=== PATIENT | female | born 1970 | race Caucasian/White ===

== ENCOUNTER 2022-06-27 18:11 | Outpatient (REF) | payer BC, SELFPAY ==
[2022-06-27 18:57] LABS: Influenza A PCR NEGATIVE (Negative); Influenza B PCR NEGATIVE (Negative); Resp Syncy Virus RNA Qual PCR NEGATIVE (Negative); SARS COV2 PCR INHOUSE NEGATIVE (Negative)
== END 2022-06-27 18:12 | disposition home or self-care (01) ==
LOC: HO.LNP 18:11
PROVIDERS: Visit Provider Nurse Practitioner Family
DX: Z20.822 Contact with and (suspected) exposure to COVID-19 (principal); R09.89 Other specified symptoms and signs involving the circulatory and respiratory systems
CPT/HCPCS: 0241U

== ENCOUNTER 2024-04-09 13:54 | Outpatient (AMB) | payer BC, SELFPAY ==
[2024-04-09 14:36] VITALS: BP 114/70; PULSE 93; TEMP 36.6; O2SAT 96; BMI 23.3
--- NOTE | 2024-04-09 14:36 | AM.OFFWIN_ITS ---
Intake Vital Signs 04/09/24 14:36 Height 5 ft 2 in Weight 127 lb 6 oz BMI 23.3 BP 114/70 Blood Pressure Location Lt brachial Position Sitting Pulse 93 Pulse Source Pulse Oximeter Temp 97.8 F Temp Source Temporal Artery Scan Pulse Oximetry (%) 96 Oxygen Delivery Method Room Air Intake Visit Reasons: EP Sore throat, cough, congestion Intake Note: Pt presents to the office today for c/o cough,congestion, headache, x4 days after going to the [facility]. Patient Tobacco Use Status: Never used Tobacco Allergies No Known Allergies Allergy (Verified 04/09/24 14:37) HPI HPI Comments History of Present Illness Details History The patient is a 53-year-old female presenting with acute respiratory symptoms. She experienced the onset of diarrhea three days ago followed by a sore throat the subsequent day. By the third day, the patient reported a dry cough, a significant headache, and minimal nasal congestion. She describes a history of recurrent upper respiratory symptoms, including sinus infections, which have led to a decreased sense of smell. The patient has not experienced shortness of br eath but reports a history of arthritis and recent difficulties in managing weight due to menopause concurrently affecting her overall wellness. She also expressed interest in hormone replacement therapy, although she has recently started using an [id number] symptom relief product. The patient has been attempting symptomatic relief through the use of cough drops and tea, avoiding medications that might interfere with testing. She has a recent surgical history of hand surgery for arthritis. There has been no prior testing for COVID-19 or influenza related to this current illness. Physical Exam General: Cooperative, healthy appearing, comfortable and no acute distress Orientation/consciousness: Patient oriented x3 Limitations: No limitations Head: Normal to inspection Ears: Hearing grossly normal bilaterally, external ears normal and TM's normal bilaterally Nose: Normal external nose present, Normal nares present and No nasal discharge present Face and sinus: Normal facial exam and Yes sinuses nontender Mouth: Normal oral and palatal mucosa present and moist mucous membranes Throat: Yes tonsils normal, Yes uvula midline. Posterior oropharynx erythema Eyes: Appearance normal, both eyes and all related structures Neck: Normal visual inspection Respiratory: Clear to auscultation bilaterally. Normal respiratory effort, able to speak in complete sentences, no respiratory distress, not tachypneic, no tripod positioning and no use of accessory muscles Cardiovascular: Regular rate and rhythm. Normal S1 and S2 Skin: No rashes or lesions noted Neuro: Patient oriented x3 Extremities: Normal to inspection and Yes no clubbing, cyanosis or edema PFSH Social History Patient Tobacco Use Status: Never used Tobacco Review of Systems Const All systems reviewed & are unremarkable except as noted in HPI and below Physical Exam Vital Signs: Last Vital Signs Temp 97.8 F 04/09/24 14:36 Pulse 93 04/09/24 14:36 BP 114/70 04/09/24 14:36 Pulse Ox 96 04/09/24 14:36 Oxygen Delivery Method Room Air 04/09/24 14:36 BMI result Body Mass Index 23.3 Results AMB Rapid Strep AMB Rapid Strep Negative Last Edit by Diann Vazquez CMA on 04/09/24 14:52 Results Reviewed Results Reviewed: Laboratory Last Values Strep Scn [facility] Negative 04/09/24 14:51 Assessment & Plan Assessment & Plan (1) URI (upper respiratory infection): Code(s): J06.9 - Acute upper respiratory infection, unspecified Qualifiers: URI type: unspecified viral URI Qualified Code(s): J06.9 - Acute upper respiratory infection, unspecified Plan: Plan 1. Acute viral upper respiratory infection: - Use of Flonase recommended for symptomatic relief due to its steroidal properties, with advice on application technique for optimal sinus relief. Adding in a decongestant, if congestion develops. otherwise, OTC meds for symptoms. - Patient advised to maintain adequate hydration and continue the use of tea and cough drops as needed for symptomatic management. - Advised on potential duration of common cold symptoms. - Flu, Covid and RSV testing sent - Rapid strep in office was negative. Patient was informed and verbally consented to the use of an ambient scribe for clinic note documentation during this visit Orders: Orders AMB Rapid Strep Screen Today Z13.9 - Encounter for screening, unspecified SARS-CoV2/FLU/RSV Today J06.9 - Acute upper respiratory infection, unspecified Coding Level of Care Code Est Pt Level 3 (45491) Diagnoses Viral upper respiratory tract infection J06.9 URI type: unspecified viral URI
== END 2024-04-09 15:15 | disposition home or self-care (01) ==
PROVIDERS: PCP Internal Medicine; Visit Provider Physician Assistant
DX: Z13.9 Encounter for screening, unspecified (principal); J06.9 Acute upper respiratory infection, unspecified

== ENCOUNTER 2024-04-09 13:54 | Outpatient (REF) | payer BC, SELFPAY ==
[2024-04-09 18:02] LABS: Influenza A PCR NEGATIVE (Negative); Influenza B PCR NEGATIVE (Negative); Resp Syncy Virus RNA Qual PCR NEGATIVE (Negative); SARS COV2 PCR INHOUSE POSITIVE (Negative)
== END 2024-04-09 13:55 | disposition home or self-care (01) ==
LOC: HO.LAB 13:54
PROVIDERS: PCP Internal Medicine; Visit Provider Physician Assistant
DX: J06.9 Acute upper respiratory infection, unspecified (principal)
CPT/HCPCS: 0241U; 87880